=== PATIENT | male | born 1980 | race African-American/Black ===

== ENCOUNTER 2017-11-16 09:39 | Emergency (ER) | payer SELFPAY ==
[~2017-11-16] VITALS: Ht 180.3 cm; Wt 100.0 kg
[2017-11-16 09:41] VITALS: Ht 180.3 cm; Wt 100.0 kg
[2017-11-16] MEDS ORDERED: TENORMIN100 MG PO (09:42)
[2017-11-16] MEDS ORDERED: PHENYTEK200 MG PO (09:43)
[2017-11-16 11:01] LABS: BASOPHILS 0.2 % (0-2); HEMATOCRIT 44.6 % (42.0-54.0); HEMOGLOBIN 15.7 g/dL (13.5-17.5); IMMATURE GRANULOCYTES 0.5 % (0-5); LYMPHOCYTES 21.5 % (15-50); MCH 29.6 pg (26.0-34.0); MCHC 35.2 g/dL (31.0-37.0); MEAN PLATELET VOLUME 9.9 fL (7.4-10.4); MONOCYTES 5.4 % (2-11); NEUTROPHILS 70.4 % (40-80); PLATELET COUNT 156 10x3/uL (130-400); RBC 5.31 10x6/uL (4.20-6.10); RDW 13.6 % (11.5-14.5); WBC 4.1 10x3/uL (4.8-10.8)
[2017-11-16 11:16] LABS: ALKALINE PHOSPHATASE 52 U/L (46-116); ALT (SGPT) 63 U/L (10-68); BILIRUBIN - TOTAL 0.63 mg/dL (0.2-1.3); CALC OSMOLALITY 273 mosm/kg (275-300); CALCIUM 8.4 mg/dL (8.5-10.1); CARBON DIOXIDE 28.3 mmol/L (21.0-32.0); CHLORIDE - SERUM 102 mmol/L (98-107); GLUCOSE 93 mg/dL (74-106); POTASSIUM - SERUM 3.7 mmol/L (3.5-5.1); PROTEIN - SERUM 7.7 g/dL (6.4-8.2); SODIUM 138 mmol/L (136-145); UREA NITROGEN 8 mg/dL (7-18); eGFR NON AFRICAN AMERICAN 89 mL/min (90-120)
[2017-11-16 11:25] LABS: CREATINE KINASE 601 UL (21-232); TROPONIN-I < 0.017 ng/mL (0.000-0.060)
[2017-11-16] MEDS ORDERED: TENORMIN25 MG PO (18:04)
[2017-11-16 18:42] VITALS: BP 139/100
== END 2017-11-16 18:42 | disposition home or self-care (01) ==
LOC: D.ER 09:39
PROVIDERS: Emergency Medicine
DX: I10 Essential (primary) hypertension (principal); R51 Headache; G40.909 Epilepsy, unspecified, not intractable, without status epilepticus; F17.200 Nicotine dependence, unspecified, uncomplicated

== ENCOUNTER 2018-06-09 17:30 | Emergency (ER) | payer SELFPAY ==
[~2018-06-09] VITALS: Ht 180.3 cm; Wt 90.9 kg
[~2018-06-09 17:30] MED LIST: PHENYTEK200 MG PO; TENORMIN100 MG PO; TENORMIN25 MG PO
[2018-06-09 17:32] VITALS: Ht 180.3 cm; Wt 90.9 kg
[2018-06-09 18:37] LABS: BASOPHILS 0 % (0-2); EOSINOPHILS 0.6 % (0-7); HEMATOCRIT 41.3 % (42.0-54.0); HEMOGLOBIN 14.7 g/dL (13.5-17.5); IMMATURE GRANULOCYTES 0.3 % (0-5); LYMPHOCYTES 38.9 % (15-50); MCH 30.4 pg (26.0-34.0); MCHC 35.6 g/dL (31.0-37.0); MCV 85.3 fL (80.0-100.0); MEAN PLATELET VOLUME 9.9 fL (7.4-10.4); MONOCYTES 4.2 % (2-11); RBC 4.84 10x6/uL (4.20-6.10); RDW 13.7 % (11.5-14.5); WBC 3.3 10x3/uL (4.8-10.8)
[2018-06-09 18:40] LABS: PLATELET COUNT 236 10x3/uL (130-400)
[2018-06-09 19:02] LABS: ALKALINE PHOSPHATASE 60 U/L (46-116); ALT (SGPT) 42 U/L (10-68); BILIRUBIN - TOTAL 0.38 mg/dL (0.2-1.3); CALC OSMOLALITY 285 mosm/kg (275-300); CALCIUM 7.7 mg/dL (8.5-10.1); CARBON DIOXIDE 26.7 mmol/L (21.0-32.0); CHLORIDE - SERUM 105 mmol/L (98-107); CREATININE - SERUM 0.9 mg/dL (0.6-1.3); GLUCOSE 92 mg/dL (74-106); PROTEIN - SERUM 7.7 g/dL (6.4-8.2); SODIUM 144 mmol/L (136-145); UREA NITROGEN 10 mg/dL (7-18); eGFR NON AFRICAN AMERICAN > 90 mL/min (90-120)
[2018-06-10 09:09] VITALS: BP 149/96
== END 2018-06-10 09:10 | disposition home or self-care (01) ==
LOC: D.ER 17:30
PROVIDERS: Family Medicine
DX: I10 Essential (primary) hypertension (principal); F10.29 Alcohol dependence with unspecified alcohol-induced disorder; G40.909 Epilepsy, unspecified, not intractable, without status epilepticus; Z91.14 Patient's other noncompliance with medication regimen